=== PATIENT | female | born 1955 | race Caucasian/White ===

== ENCOUNTER 2017-04-20 05:46 | Inpatient (IN) | payer BC ==
[~2017-04-20] VITALS: Ht 167.6 cm; Wt 98.3 kg
[~2017-04-20 05:46] MED LIST: BACITRACIN28.4 GM TP; DISULFIRAM250 MG PO; FLUOXETINE HCL40 MG PO; KLONOPIN1 MG PO; PENTASA250 MG PO; PROZAC40 MG PO; SEROQUEL200 MG PO; THERAGRAN1 TABLET PO; VITAMIN B-1100 MG PO
[2017-04-20 07:13] LABS: HEMATOCRIT 35.7 % (36.0-46.0); MCHC 32.8 G/DL (30.0-36.0); MCV 88.6 FL (83-99); MEAN PLAT.VOLUME 11.5 uM^3 (9.5-12.4); PLATELET COUNT 203 K/uL (156-360); RBC DIS.WIDTH-CV 12.9 % (11.8-14.6); RBC DIS.WIDTH-SD 42.1 % (39-53); RED BLOOD COUNT 4.03 M/uL (3.80-5.20); WHITE BLOOD COUNT 9.6 K/uL (4.1-10.2)
[2017-04-20 07:56] LABS: ANION GAP 8 MEQ/L (2-14); CHLORIDE 99 MEQ/L (99-109); GFR ESTIMATE (CALCULATED) 49 mL/min/; GLUCOSE 91 mg/dL (70-99); POTASSIUM 4.4 MEQ/L (3.7-5.4); SAMPLE HEMOLYSIS CHECK 0; SAMPLE ICTERIC CHECK 0; SAMPLE LIPEMIA CHECK 0; SODIUM 131 MEQ/L (136-147); UREA NITROGEN (BUN) 23 mg/dL (9-23)
[2017-04-20 07:57] LABS: TROP-I INTERPRETATION NEGATIVE; TROPONIN-I 0.01 ng/mL (0.0-0.30)
[2017-04-20] MEDS ORDERED: FLUOXETINE HCL40 MG PO (10:27)
[2017-04-20] MEDS ORDERED: GABAPENTIN600 MG PO (10:27)
[2017-04-20] MEDS ORDERED: VENLAFAXINE HC150 M1 PO (10:27)
[2017-04-20] MEDS ORDERED: OXCARBAZEPINE300 MG PO (10:27)
[2017-04-20] MEDS ORDERED: DESYREL 150 MG150 MG PO (10:28)
[2017-04-20 12:51] LABS: IRON 24 MCG/DL (35-150)
[2017-04-20 12:55] LABS: FERRITIN 91 NG/ML (10-291)
[2017-04-20 14:38] LABS: TROP-I INTERPRETATION NEGATIVE; TROPONIN-I < 0.01 ng/mL (0.0-0.30)
[2017-04-20 16:22] VITALS: BP 112/69
[2017-04-20 20:08] LABS: TROP-I INTERPRETATION NEGATIVE; TROPONIN-I 0.01 ng/mL (0.0-0.30)
[2017-04-20 20:25] VITALS: BP 97/50
[2017-04-21 00:40] VITALS: BP 102/56
[2017-04-21 04:25] VITALS: BP 109/60
[2017-04-21 06:32] LABS: HEMATOCRIT 37.2 % (36.0-46.0); MCH 29.3 PG (29.0-34.0); MCHC 32.8 G/DL (30.0-36.0); MCV 89.2 FL (83-99); MEAN PLAT.VOLUME 11.5 uM^3 (9.5-12.4); PLATELET COUNT 211 K/uL (156-360); RBC DIS.WIDTH-CV 13.2 % (11.8-14.6); RED BLOOD COUNT 4.17 M/uL (3.80-5.20); WHITE BLOOD COUNT 7.4 K/uL (4.1-10.2)
[2017-04-21 07:29] LABS: ANION GAP 10 MEQ/L (2-14); CHLORIDE 106 MEQ/L (99-109); GFR ESTIMATE (CALCULATED) > 59 mL/min/; POTASSIUM 4.3 MEQ/L (3.7-5.4); SAMPLE HEMOLYSIS CHECK 0; SAMPLE ICTERIC CHECK 0; SAMPLE LIPEMIA CHECK 0; UREA NITROGEN (BUN) 14 mg/dL (9-23)
[2017-04-21 07:30] LABS: GLUCOSE 138 mg/dL (70-99); SODIUM 139 MEQ/L (136-147)
[2017-04-21 07:48] LABS: INTERNAL CONTROL VALID? YES
[2017-04-21 08:40] VITALS: BP 105/58
[2017-04-21 11:32] LABS: HIV INDEX 0.09; HIV-1/2 AB/AG COMBO Nonreactive
[2017-04-21 14:00] VITALS: BP 122/61
[2017-04-21 22:50] VITALS: BP 132/62
[2017-04-22 07:00] LABS: MCH 29.3 PG (29.0-34.0); MCHC 32.5 G/DL (30.0-36.0); MEAN PLAT.VOLUME 11.4 uM^3 (9.5-12.4); PLATELET COUNT 225 K/uL (156-360); RBC DIS.WIDTH-CV 13.1 % (11.8-14.6); RBC DIS.WIDTH-SD 42.8 % (39-53); WHITE BLOOD COUNT 11.9 K/uL (4.1-10.2)
[2017-04-22 07:33] VITALS: BP 110/60
[2017-04-22 16:18] VITALS: BP 134/63
[2017-04-22 22:48] VITALS: BP 132/69
[2017-04-23 03:00] VITALS: BP 117/57
[2017-04-23 08:03] LABS: HEMATOCRIT 36.3 % (36.0-46.0); MCH 29.8 PG (29.0-34.0); MCHC 32.2 G/DL (30.0-36.0); MCV 92.4 FL (83-99); RBC DIS.WIDTH-CV 13.4 % (11.8-14.6); RBC DIS.WIDTH-SD 45.1 % (39-53); RED BLOOD COUNT 3.93 M/uL (3.80-5.20); WHITE BLOOD COUNT 11.5 K/uL (4.1-10.2)
[2017-04-23 08:27] LABS: ANION GAP 9 MEQ/L (2-14); CHLORIDE 103 MEQ/L (99-109); GFR ESTIMATE (CALCULATED) > 59 mL/min/; GLUCOSE 105 mg/dL (70-99); POTASSIUM 4.6 MEQ/L (3.7-5.4); SAMPLE HEMOLYSIS CHECK 0; SAMPLE ICTERIC CHECK 0; SAMPLE LIPEMIA CHECK 0; SODIUM 138 MEQ/L (136-147); UREA NITROGEN (BUN) 19 mg/dL (9-23)
[2017-04-23 08:31] VITALS: BP 114/58
[2017-04-23 08:53] LABS: MEAN PLAT.VOLUME 11.2 uM^3 (9.5-12.4); PLATELET COUNT 239 K/uL (156-360)
[2017-04-23 15:56] VITALS: BP 120/58
[2017-04-23 20:54] LABS: Neutrophil Cytoplasmic Aby Negative (Negative)
[2017-04-24 01:18] VITALS: BP 112/56
[2017-04-24 06:46] LABS: HEMATOCRIT 34.4 % (36.0-46.0); MCH 28.8 PG (29.0-34.0); MCHC 31.4 G/DL (30.0-36.0); MCV 91.7 FL (83-99); MEAN PLAT.VOLUME 10.8 uM^3 (9.5-12.4); PLATELET COUNT 207 K/uL (156-360); RBC DIS.WIDTH-CV 13.3 % (11.8-14.6); RBC DIS.WIDTH-SD 44.8 % (39-53); RED BLOOD COUNT 3.75 M/uL (3.80-5.20); WHITE BLOOD COUNT 8.6 K/uL (4.1-10.2)
[2017-04-24 07:52] VITALS: BP 123/64
[2017-04-24 15:42] VITALS: BP 125/78
[2017-04-24 19:57] VITALS: BP 123/59
[2017-04-24 23:14] VITALS: BP 121/54
[2017-04-25 03:35] VITALS: BP 121/62
[2017-04-25 06:35] LABS: HEMATOCRIT 33.8 % (36.0-46.0); MCH 29.7 PG (29.0-34.0); MCHC 32.5 G/DL (30.0-36.0); MCV 91.4 FL (83-99); MEAN PLAT.VOLUME 11.2 uM^3 (9.5-12.4); PLATELET COUNT 221 K/uL (156-360); RBC DIS.WIDTH-CV 13.4 % (11.8-14.6); RBC DIS.WIDTH-SD 44.5 % (39-53); WHITE BLOOD COUNT 8.8 K/uL (4.1-10.2)
[2017-04-25 06:59] LABS: ANION GAP 7 MEQ/L (2-14); CHLORIDE 104 MEQ/L (99-109); GFR ESTIMATE (CALCULATED) > 59 mL/min/; GLUCOSE 89 mg/dL (70-99); SAMPLE HEMOLYSIS CHECK 0; SAMPLE ICTERIC CHECK 0; SAMPLE LIPEMIA CHECK 0; SODIUM 141 MEQ/L (136-147); UREA NITROGEN (BUN) 15 mg/dL (9-23)
[2017-04-25 07:26] VITALS: BP 119/69
[2017-04-25 15:47] VITALS: BP 110/73
[2017-04-25 19:54] VITALS: BP 114/63
[2017-04-25 23:16] VITALS: BP 117/68
[2017-04-26 07:56] VITALS: BP 136/70
[2017-04-26 11:22] VITALS: BP 128/62
[2017-04-26 16:07] VITALS: BP 121/60
[2017-04-26 19:47] VITALS: BP 122/71
[2017-04-26 22:45] VITALS: BP 138/67
[2017-04-27 02:57] VITALS: BP 108/64
[2017-04-27 06:45] LABS: MCH 29.6 PG (29.0-34.0); MCHC 32.9 G/DL (30.0-36.0); MCV 90.2 FL (83-99); MEAN PLAT.VOLUME 10.8 uM^3 (9.5-12.4); PLATELET COUNT 268 K/uL (156-360); RBC DIS.WIDTH-CV 13.7 % (11.8-14.6); RBC DIS.WIDTH-SD 44.4 % (39-53); RED BLOOD COUNT 3.88 M/uL (3.80-5.20); WHITE BLOOD COUNT 11.4 K/uL (4.1-10.2)
[2017-04-27 07:20] LABS: ANION GAP 11 MEQ/L (2-14); CHLORIDE 98 MEQ/L (99-109); GFR ESTIMATE (CALCULATED) > 59 mL/min/; GLUCOSE 76 mg/dL (70-99); POTASSIUM 4.7 MEQ/L (3.7-5.4); SAMPLE HEMOLYSIS CHECK 1; SAMPLE ICTERIC CHECK 0; SAMPLE LIPEMIA CHECK 0; SODIUM 138 MEQ/L (136-147); UREA NITROGEN (BUN) 15 mg/dL (9-23)
[2017-04-27 07:28] VITALS: BP 119/54
[2017-04-27 11:09] VITALS: BP 128/65
[2017-04-27 16:11] VITALS: BP 128/86
[2017-04-27 19:21] VITALS: BP 111/61
[2017-04-27 23:30] VITALS: BP 118/65
[2017-04-28 03:45] VITALS: BP 110/62
[2017-04-28 06:34] LABS: HEMATOCRIT 36.2 % (36.0-46.0); MCH 29.8 PG (29.0-34.0); MCHC 33.1 G/DL (30.0-36.0); MCV 89.8 FL (83-99); MEAN PLAT.VOLUME 10.6 uM^3 (9.5-12.4); PLATELET COUNT 301 K/uL (156-360); RBC DIS.WIDTH-CV 13.6 % (11.8-14.6); RBC DIS.WIDTH-SD 44.6 % (39-53); RED BLOOD COUNT 4.03 M/uL (3.80-5.20)
[2017-04-28 06:50] VITALS: BP 104/55
[2017-04-28 11:08] VITALS: BP 132/62
[2017-04-28 15:26] VITALS: BP 143/62
[2017-04-28 23:34] VITALS: BP 96/55
[2017-04-29 06:39] LABS: HEMATOCRIT 35.9 % (36.0-46.0); MCH 28.5 PG (29.0-34.0); MCV 89.1 FL (83-99); MEAN PLAT.VOLUME 10.7 uM^3 (9.5-12.4); PLATELET COUNT 287 K/uL (156-360); RBC DIS.WIDTH-CV 13.2 % (11.8-14.6); RBC DIS.WIDTH-SD 43.6 % (39-53); RED BLOOD COUNT 4.03 M/uL (3.80-5.20); WHITE BLOOD COUNT 11.6 K/uL (4.1-10.2)
[2017-04-29 06:50] VITALS: BP 111/60
[2017-04-29 07:32] LABS: ANION GAP 11 MEQ/L (2-14); CHLORIDE 97 MEQ/L (99-109); GFR ESTIMATE (CALCULATED) > 59 mL/min/; POTASSIUM 4.4 MEQ/L (3.7-5.4); SAMPLE HEMOLYSIS CHECK 0; SAMPLE ICTERIC CHECK 0; SAMPLE LIPEMIA CHECK 0; SODIUM 137 MEQ/L (136-147)
[2017-04-29 07:33] LABS: GLUCOSE 114 mg/dL (70-99); UREA NITROGEN (BUN) 23 mg/dL (9-23)
[2017-04-29 15:16] VITALS: BP 119/65
[2017-04-29 18:25] LABS: TROP-I INTERPRETATION NEGATIVE; TROPONIN-I < 0.01 ng/mL (0.0-0.30)
[2017-04-29 23:19] VITALS: BP 122/67
[2017-04-30 01:45] LABS: TROP-I INTERPRETATION NEGATIVE; TROPONIN-I < 0.01 ng/mL (0.0-0.30)
[2017-04-30 06:58] LABS: PROTHROMBIN TIME 10.4 SEC (10.2-12.9)
[2017-04-30 07:01] LABS: PTT 26.3 SEC (25-37)
[2017-04-30 08:00] VITALS: BP 102/55
[2017-04-30 08:04] LABS: TROP-I INTERPRETATION NEGATIVE; TROPONIN-I < 0.01 ng/mL (0.0-0.30)
[2017-04-30 16:46] VITALS: BP 130/73
[2017-04-30 23:34] VITALS: BP 137/74
[2017-05-01 06:33] LABS: EOSINOPHIL (%) 2.1 % (0-5); EOSINOPHIL COUNT 0.3 K/uL (0-0.3); HEMATOCRIT 36.2 % (36.0-46.0); IMMATURE GRANULOCYTE (%) 3.3 % (0.0-0.7); IMMATURE GRANULOCYTE COUNT 0.4 K/uL; INSTRUMENT ABS NEUTROPHIL CT 9.7 K/uL; LYMPHOCYTE COUNT 1.7 K/uL (1.0-2.8); MCH 28.7 PG (29.0-34.0); MCV 89.6 FL (83-99); MEAN PLAT.VOLUME 10.2 uM^3 (9.5-12.4); MONOCYTE (%) 5.7 % (3-12); MONOCYTE COUNT 0.7 K/uL (0-0.8); NEUTROPHIL (%) 75.4 % (45-76); NEUTROPHIL COUNT 9.7 K/uL (1.8-6.4); PLATELET COUNT 293 K/uL (156-360); RBC DIS.WIDTH-CV 13.1 % (11.8-14.6); RBC DIS.WIDTH-SD 43.1 % (39-53); RED BLOOD COUNT 4.04 M/uL (3.80-5.20); WHITE BLOOD COUNT 12.9 K/uL (4.1-10.2)
[2017-05-01 07:01] LABS: ANION GAP 8 MEQ/L (2-14); CHLORIDE 92 MEQ/L (99-109); GFR ESTIMATE (CALCULATED) > 59 mL/min/; POTASSIUM 4.7 MEQ/L (3.7-5.4); SAMPLE HEMOLYSIS CHECK 0; SAMPLE ICTERIC CHECK 0; SAMPLE LIPEMIA CHECK 0; SODIUM 131 MEQ/L (136-147); UREA NITROGEN (BUN) 17 mg/dL (9-23)
[2017-05-01 07:07] LABS: GLUCOSE 74 mg/dL (70-99)
[2017-05-01 08:00] VITALS: BP 125/53
[2017-05-01 17:01] VITALS: BP 119/75
[2017-05-01 21:43] VITALS: BP 140/65
[2017-05-02] VITALS (7 sets, daily range): BP systolic 103–125; BP diastolic 54–74
[2017-05-02 06:45] LABS: HEMATOCRIT 36.3 % (36.0-46.0); MCH 29.1 PG (29.0-34.0); MCHC 32.5 G/DL (30.0-36.0); MCV 89.4 FL (83-99); MEAN PLAT.VOLUME 10.4 uM^3 (9.5-12.4); PLATELET COUNT 282 K/uL (156-360); RBC DIS.WIDTH-CV 13.1 % (11.8-14.6); RBC DIS.WIDTH-SD 43.3 % (39-53); RED BLOOD COUNT 4.06 M/uL (3.80-5.20); WHITE BLOOD COUNT 14.6 K/uL (4.1-10.2)
[2017-05-02 07:12] LABS: ANION GAP 7 MEQ/L (2-14); CHLORIDE 89 MEQ/L (99-109); GFR ESTIMATE (CALCULATED) 54 mL/min/; GLUCOSE 81 mg/dL (70-99); POTASSIUM 4.8 MEQ/L (3.7-5.4); SAMPLE HEMOLYSIS CHECK 0; SAMPLE ICTERIC CHECK 0; SAMPLE LIPEMIA CHECK 0; SODIUM 129 MEQ/L (136-147); UREA NITROGEN (BUN) 21 mg/dL (9-23)
[2017-05-03 06:02] LABS: EOSINOPHIL COUNT 0.1 K/uL (0-0.3); HEMATOCRIT 34.5 % (36.0-46.0); IMMATURE GRANULOCYTE (%) 2.3 % (0.0-0.7); IMMATURE GRANULOCYTE COUNT 0.3 K/uL; INSTRUMENT ABS NEUTROPHIL CT 10.6 K/uL; LYMPHOCYTE COUNT 1.3 K/uL (1.0-2.8); MCH 29.7 PG (29.0-34.0); MCHC 32.8 G/DL (30.0-36.0); MCV 90.6 FL (83-99); MEAN PLAT.VOLUME 10.4 uM^3 (9.5-12.4); MONOCYTE (%) 5.4 % (3-12); MONOCYTE COUNT 0.7 K/uL (0-0.8); NEUTROPHIL (%) 81.3 % (45-76); NEUTROPHIL COUNT 10.6 K/uL (1.8-6.4); PLATELET COUNT 274 K/uL (156-360); RBC DIS.WIDTH-CV 13.2 % (11.8-14.6); RBC DIS.WIDTH-SD 43.2 % (39-53); RED BLOOD COUNT 3.81 M/uL (3.80-5.20)
[2017-05-03 06:30] LABS: ANION GAP 4 MEQ/L (2-14); CHLORIDE 95 MEQ/L (99-109); GFR ESTIMATE (CALCULATED) > 59 mL/min/; GLUCOSE 105 mg/dL (70-99); POTASSIUM 4.6 MEQ/L (3.7-5.4); SAMPLE HEMOLYSIS CHECK 0; SAMPLE ICTERIC CHECK 0; SAMPLE LIPEMIA CHECK 0; SODIUM 132 MEQ/L (136-147); UREA NITROGEN (BUN) 19 mg/dL (9-23)
[2017-05-03 08:00] VITALS: BP 98/53
[2017-05-03 11:10] VITALS: BP 96/56
[2017-05-03 15:32] VITALS: BP 122/57
[2017-05-03 19:12] VITALS: BP 115/73
[2017-05-04] VITALS (7 sets, daily range): BP systolic 106–138; BP diastolic 58–78
[2017-05-04 05:50] LABS: EOSINOPHIL (%) 1.3 % (0-5); EOSINOPHIL COUNT 0.2 K/uL (0-0.3); HEMATOCRIT 34.6 % (36.0-46.0); IMMATURE GRANULOCYTE COUNT 0.3 K/uL; INSTRUMENT ABS NEUTROPHIL CT 12.2 K/uL; MCH 28.7 PG (29.0-34.0); MCHC 31.5 G/DL (30.0-36.0); MCV 91.1 FL (83-99); MEAN PLAT.VOLUME 10.5 uM^3 (9.5-12.4); MONOCYTE (%) 4.9 % (3-12); MONOCYTE COUNT 0.7 K/uL (0-0.8); NEUTROPHIL (%) 84.6 % (45-76); NEUTROPHIL COUNT 12.2 K/uL (1.8-6.4); PLATELET COUNT 259 K/uL (156-360); RBC DIS.WIDTH-CV 13.4 % (11.8-14.6); RBC DIS.WIDTH-SD 44.5 % (39-53); WHITE BLOOD COUNT 14.4 K/uL (4.1-10.2)
[2017-05-04 06:17] LABS: ANION GAP 6 MEQ/L (2-14); CHLORIDE 99 MEQ/L (99-109); GFR ESTIMATE (CALCULATED) > 59 mL/min/; GLUCOSE 77 mg/dL (70-99); POTASSIUM 4.8 MEQ/L (3.7-5.4); SAMPLE HEMOLYSIS CHECK 0; SAMPLE ICTERIC CHECK 0; SAMPLE LIPEMIA CHECK 0; SODIUM 134 MEQ/L (136-147); UREA NITROGEN (BUN) 15 mg/dL (9-23)
[2017-05-05] VITALS (12 sets, daily range): BP systolic 86–131; BP diastolic 41–74
[2017-05-05 05:13] LABS: EOSINOPHIL (%) 0.1 % (0-5); HEMATOCRIT 33.7 % (36.0-46.0); IMMATURE GRANULOCYTE COUNT 0.3 K/uL; INSTRUMENT ABS NEUTROPHIL CT 15.8 K/uL; LYMPHOCYTE COUNT 0.4 K/uL (1.0-2.8); MCH 28.8 PG (29.0-34.0); MCHC 32.3 G/DL (30.0-36.0); MCV 89.2 FL (83-99); MEAN PLAT.VOLUME 10.7 uM^3 (9.5-12.4); MONOCYTE COUNT 0.3 K/uL (0-0.8); NEUTROPHIL (%) 93.3 % (45-76); NEUTROPHIL COUNT 15.8 K/uL (1.8-6.4); PLATELET COUNT 275 K/uL (156-360); RBC DIS.WIDTH-CV 13.4 % (11.8-14.6); RBC DIS.WIDTH-SD 44.1 % (39-53); RED BLOOD COUNT 3.78 M/uL (3.80-5.20); WHITE BLOOD COUNT 16.9 K/uL (4.1-10.2)
[2017-05-05 05:40] LABS: ANION GAP 11 MEQ/L (2-14); CHLORIDE 100 MEQ/L (99-109); GFR ESTIMATE (CALCULATED) > 59 mL/min/; GLUCOSE 144 mg/dL (70-99); POTASSIUM 4.7 MEQ/L (3.7-5.4); SAMPLE HEMOLYSIS CHECK 0; SAMPLE ICTERIC CHECK 0; SAMPLE LIPEMIA CHECK 0; SODIUM 136 MEQ/L (136-147); UREA NITROGEN (BUN) 13 mg/dL (9-23)
[2017-05-05 10:27] LABS: BASE EXCESS 1.5 mEq/L (-3 to +3); BICARBONATE 26.6 mEq/L (22-26); CARBOXY HGB 1.9 % (0-5); COMMENTS - BLOOD GASES +A +C; DEVICE HHFNC; FI02 100 %; METHEMOGLOBIN 1.8 % (0-1.5); O2 FLOW 35 L/MIN; PCO2 43 mm Hg (35-45); PO2 73 mm Hg (80-100); SITE LR
[2017-05-05 10:28] LABS: TOTAL RESP RATE 32 resp/min
[2017-05-05 18:22] LABS: METH RESISTANT S AUREUS PCR NEGATIVE (NEGATIVE)
[2017-05-05 18:30] LABS: PROBE CHECK PASS; SPECIMEN PROCESSING CONTROL PASS
[2017-05-06] VITALS (20 sets, daily range): BP systolic 108–143; BP diastolic 41–78
[2017-05-06 05:44] LABS: HEMATOCRIT 33.1 % (36.0-46.0); MCH 29.3 PG (29.0-34.0); MCHC 32.9 G/DL (30.0-36.0); MEAN PLAT.VOLUME 10.7 uM^3 (9.5-12.4); PLATELET COUNT 296 K/uL (156-360); RBC DIS.WIDTH-CV 13.7 % (11.8-14.6); RBC DIS.WIDTH-SD 44.5 % (39-53); RED BLOOD COUNT 3.72 M/uL (3.80-5.20); WHITE BLOOD COUNT 18.6 K/uL (4.1-10.2)
[2017-05-07] VITALS (18 sets, daily range): BP systolic 99–130; BP diastolic 48–74
[2017-05-08] VITALS (7 sets, daily range): BP systolic 104–133; BP diastolic 48–74
[2017-05-08 09:30] LABS: MCH 29.7 PG (29.0-34.0); MCHC 32.8 G/DL (30.0-36.0); MCV 90.7 FL (83-99); MEAN PLAT.VOLUME 10.5 uM^3 (9.5-12.4); PLATELET COUNT 328 K/uL (156-360); RBC DIS.WIDTH-CV 13.8 % (11.8-14.6); RBC DIS.WIDTH-SD 45.2 % (39-53); RED BLOOD COUNT 3.97 M/uL (3.80-5.20); WHITE BLOOD COUNT 16.7 K/uL (4.1-10.2)
[2017-05-08 10:11] LABS: ANION GAP 12 MEQ/L (2-14); CHLORIDE 98 MEQ/L (99-109); GFR ESTIMATE (CALCULATED) > 59 mL/min/; GLUCOSE 171 mg/dL (70-99); MAGNESIUM 2.1 mg/dl (1.3-2.7); POTASSIUM 4.4 MEQ/L (3.7-5.4); SAMPLE HEMOLYSIS CHECK 0; SAMPLE ICTERIC CHECK 0; SAMPLE LIPEMIA CHECK 0; SODIUM 141 MEQ/L (136-147)
[2017-05-08 10:14] LABS: UREA NITROGEN (BUN) 41 mg/dL (9-23)
== END 2017-05-08 22:04 | disposition short-term general hospital (02) | DRG 166 ==
LOC: EME 05:46 → EDOF 10:34 → 5EAST 10:34 → EDOF 10:36 → 5EAST 15:07 → 4EAST 05-01 20:53 → ENRESERV 05-05 16:32 → 4WEST 05-05 16:34
PROVIDERS: Hospitalist; Internal Medicine; Internal Medicine Critical Care Medicine; Internal Medicine Pulmonary Disease; Student in an Organized Health Care Education/Training Program; Thoracic Surgery (Cardiothoracic Vascular Surgery)
PROC: 0BBJ8ZX Excision of Left Lower Lung Lobe, Via Natural or Artificial Opening Endoscopic, Diagnostic (ICD-10-PCS; principal; 2017-04-21)
PROC: 0B9H8ZX Drainage of Lung Lingula, Via Natural or Artificial Opening Endoscopic, Diagnostic (ICD-10-PCS; principal; 2017-04-21)
PROC: 0BBC4ZX Excision of Right Upper Lung Lobe, Percutaneous Endoscopic Approach, Diagnostic (ICD-10-PCS; 2017-05-01)
PROC: 0BBF4ZX Excision of Right Lower Lung Lobe, Percutaneous Endoscopic Approach, Diagnostic (ICD-10-PCS; 2017-05-01)
DX: J44.0 Chronic obstructive pulmonary disease with (acute) lower respiratory infection (principal); J96.01 Acute respiratory failure with hypoxia; J44.1 Chronic obstructive pulmonary disease with (acute) exacerbation; I50.33 Acute on chronic diastolic (congestive) heart failure; J18.9 Pneumonia, unspecified organism; E66.01 Morbid (severe) obesity due to excess calories; E87.1 Hypo-osmolality and hyponatremia; J84.112 Idiopathic pulmonary fibrosis; D64.9 Anemia, unspecified; I45.10 Unspecified right bundle-branch block; F17.210 Nicotine dependence, cigarettes, uncomplicated; Z68.34 Body mass index [BMI] 34.0-34.9, adult; E03.9 Hypothyroidism, unspecified; F41.0 Panic disorder [episodic paroxysmal anxiety]; G89.4 Chronic pain syndrome; E86.1 Hypovolemia; D86.9 Sarcoidosis, unspecified
CPT/HCPCS: 36600; 71010; 71020; 71275; 76001; 80048; 80048 91; 82164 90; 82607; 82728; 82746; 82803; 83540; 83735; 83880; 84100; 84466; 84484; 85025; 85027; 85610; 85730; 86021 90; 86038; 86430; 86703; 87040; 87070; 87081; 87116; 87205; 87206; 87278; 87449; 87641; 88108; 88173; 88305; 88307; 88312; 93005; 93306; 94002; 94010; 94640; 94640 76; 94667; 94668; 94760; 94799; 99202; 99281; 99285; J0330; J0456; J0690; J0696; J1100; J1170; J1650; J1885; J1940; J1956; J2060; J2250; J2270; J2310; J2405; J2543; J2710; J2765; J2920; J2930; J3010; J7030; J7040; J7050; J7120; J7512